=== PATIENT | female | born 1935 | race American Indian/Alaskan Native ===

== ENCOUNTER 2016-10-23 06:24 | Day surgery (SDC) | payer MEDICARE ==
[2016-10-23 06:59] VITALS: TEMP 97
[2016-10-23 07:06] VITALS: BMI 36.3
[2016-10-23] MEDS ORDERED: Lactated Ringer's 500 ML IV ONE ×2 (08:02)
[2016-10-23] MEDS ORDERED: Propofol 10 mg/ml Inj (20 ML) ONE (08:09)
[2016-10-23] MEDS ORDERED: Lidocaine Hydrochloride 5 ML INJ ONE (08:09)
--- NOTE | 2016-10-23 08:27 | CP.SDSHP ---
Same Day Surgery H & P - History Proposed Procedure: EGD w/ biopsy Pre-Op Diagnosis: GI Bleed - Previous Medical/Surgical History Cardiac: Hypertension, ASHD/CAD Pulmonary: Asthma, Emphysema/COPD Endocrine/Metabolic: Diabetes Misc: Other (Breast cancer) Previous Surgical History: Mastectomy, podiatric surgery - Allergies Allergies: Allergies Penicillins Allergy (Verified 01/11/16 15:09) - Current Medications Current Medications: reviewed, per reconciliation - Physical Exam General Appearance: wdwn nad Vital Signs: Vital Signs 10/23/16 06:50 Temperature 97 F L Pulse Rate 70 Respiratory 19 Rate Blood Pressure 138/60 O2 Sat by Pulse 98 Oximetry Mental Status: Alert & Oriented x3 Heart: WNL Lungs: WNL GI: WNL - {Optional Preform as Required} Abdomen: WNL - Impression Impression: GI Bleed Pt. Evaluated Today:Candidate for Anesthesia & Procedure: Yes - Date & Time Date: 10/23/16 Time: 08:26 Short Stay Discharge - Short Stay Discharge Admitting Diagnosis/Reason for Visit: ANEMIA Disposition: HOME/ ROUTINE
[2016-10-23 09:24] VITALS: O2SAT 96
[2016-10-23 09:26] VITALS: BP 114/66; PULSE 63; RESP 18
== END 2016-10-23 09:49 | disposition home or self-care (01) ==
LOC: C.ENDO 06:24
PROVIDERS: ATTEND Internal Medicine Gastroenterology
DX: D64.9 Anemia, unspecified (principal); K44.9 Diaphragmatic hernia without obstruction or gangrene
CPT/HCPCS: 43235; 82948; J2704; J7120

== ENCOUNTER 2017-02-04 12:18 | Inpatient (IN) | payer MEDICARE ==
[2017-02-04 12:19] VITALS: BMI 36.3
[2017-02-04 14:15] LABS: BASO # 0.1 K/uL (0.0-0.2); BASO % 0.9 % (0.0-2.0); EOS # 0.2 K/uL (0.0-0.7); EOS % 2.2 % (0.0-4.0); HEMATOCRIT 37.4 % (34.0-47.0); LYMPH # 1.7 K/uL (1.0-4.3); LYMPH % 24.2 % (20.0-40.0); MEAN CORPUSCULAR HEMOGLOBIN 30.8 pg (27.0-31.0); MEAN CORPUSCULAR HGB CONC 33.6 g/dL (33.0-37.0); MEAN PLATELET VOLUME 7.8 fL (7.2-11.7); MONO # 0.7 K/uL (0.0-0.8); MONO % 9.9 % (0.0-10.0); RED CELL DISTRIBUTION WIDTH 14.8 % (11.5-14.5); WHITE BLOOD COUNT 7.2 K/uL (4.8-10.8)
[2017-02-04 14:16] LABS: MEAN CELL VOLUME 91.7 fL (81.0-99.0)
--- NOTE | 2017-02-04 15:05 | RAD ---
PROCEDURE: Radiographs of the chest and abdomen (obstructive series) HISTORY: abd pain COMPARISON: No prior. TECHNIQUE: AP radiograph of the chest, with upright and supine radiographs of the abdomen. FINDINGS: CHEST: Lungs: A few incidental granulomas are suggested. No consolidation appreciated. Surgical changes consistent with prior left breast surgery over left axilla Cardiovascular: Mild cardiomegaly left ventricular enlargement configuration suggested. . No pulmonary vascular congestion. Pleura: No pleural fluid. No pneumothorax. Other findings: None. ABDOMEN AND PELVIS: Bowel: There is scattered hyperdensities over the pelvis and left abdomen inferred as residual contrast within rectosigmoid diverticulitis. Additional concomitant right hemipelvic surgical clips are also present. . Left splenic flexure stool retention. No evidence of mechanical obstruction. Free air: None. Bones: Bilateral inferior sclerotic SI joint changes noted. Similar-appearing the large lytic appearing lesion left iliac bone is noted and apparently previously biopsied on 11/15/2015 Other findings: None. IMPRESSION: Left splenic stool retention. . No evidence of mechanical bowel obstruction. No free air Rectosigmoid diverticulosis. With right hemipelvic surgical clips Left iliac bone lytic lesion - with prior biopsy of it noted.
[2017-02-04 15:08] LABS: RBC URINE 3 /hpf (0-3); URINE BILIRUBIN NEGATIVE (NEGATIVE); URINE BLOOD NEGATIVE (NEGATIVE); URINE COLOR Yellow (YELLOW); URINE GLUCOSE (UA) NORMAL (Normal); URINE KETONE NEGATIVE (NEGATIVE); URINE LEUKOCYTE ESTERASE TRACE Leu/uL (Negative); URINE PROTEIN 1+ mg/dL (NEGATIVE); URINE UROBILINOGEN NORMAL mg/dL (0.2-1.0); WBC URINE 7 /hpf (0-5)
[2017-02-04 15:38] LABS: ALB/GLOB RATIO 1.3 (1.0-2.1); ALKALINE PHOSPHATASE 84 U/L (38-126); ALT/SGPT 31 U/L (9-52); AST/SGOT 27 U/L (14-36); BILIRUBIN,TOTAL 0.9 mg/dL (0.2-1.3); BLOOD UREA NITROGEN 26 mg/dL (7-17); CALCIUM 8.8 mg/dl (8.6-10.4); CARBON DIOXIDE 27 mmol/L (22-30); CHLORIDE 101 mmol/L (98-107); GFR AFRICAN-AMERICAN > 60; GLUCOSE,RANDOM 96 mg/dL (65-105); POTASSIUM 4.4 mmol/L (3.6-5.2); SODIUM 135 mmol/L (132-148); TOTAL PROTEIN 7.1 g/dL (6.3-8.3)
[2017-02-04] MEDS ORDERED: Iohexol 240 (50 ml) PO ONE (15:47)
[2017-02-04] MEDS ORDERED: Iohexol 240 (50 ml) ONE (15:57)
--- NOTE | 2017-02-04 16:11 | CP.PCM.HP ---
History of Present Illness - History of Present Illness History of Present Illness: An 81-year-old female with PMHanemia, anxiety, asthma, atrial fibrillation, CHF , COPD, DM, gastritis, HTN, hypercholesterolemia, CKD [partial right nephrectomy ] and sleep apnea presents to the ER for C/ bleeding per rectum. C/Obleeding per rectum for 1 day. Bright red blood admixed with stool. C status O denies hard stools since today morning. C/Oabdominal pain for 1 day. Insidious in onset, mildly progressive, generalized all over the abdomen, cramping sensation, intensity of 5/10, no aggravating or relieving factors. No C/Obladder disturbance, vomiting, fever, chills, nausea. Present on Admission - Present on Admission Any Indicators Present on Admission: No Past Patient History - Past Medical History & Family History Past Medical History?: Yes - Past Social History Smoking Status: Never Smoked - CARDIAC Hx Cardiac Disorders: Yes (A-fib, Coronary stentx2) Hx Congestive Heart Failure: Yes Hx Hypercholesterolemia: Yes Hx Hypertension: Yes - PULMONARY Hx Respiratory Disorders: Yes Hx Asthma: Yes Hx Chronic Obstructive Pulmonary Disease (COPD): Yes Hx Sleep Apnea: Yes (NO C-PAP) - NEUROLOGICAL Hx Neurological Disorder: No - HEENT Hx HEENT Problems: No - RENAL Hx Chronic Kidney Disease: Yes (PARTIAL right NEPHRECTOMY) Other/Comment: MASS ON KIDNEY - ENDOCRINE/METABOLIC Hx Endocrine Disorders: Yes Hx Diabetes Mellitus Type 2: Yes - HEMATOLOGICAL/ONCOLOGICAL Hx Blood Disorders: Yes Hx Anemia: Yes Hx Cancer: Yes (left BREAST removed) Hx Chemotherapy: Yes - INTEGUMENTARY Hx Dermatological Problems: No - MUSCULOSKELETAL/RHEUMATOLOGICAL Hx Musculoskeletal Disorders: Yes Hx Falls: Yes Hx Fractures: Yes (TOES LEFT FOOT) Other/Comment: USES CANE - GASTROINTESTINAL Hx Gastrointestinal Disorders: Yes Hx Gastritis: Yes Hx Hemorrhoids: Yes Other/Comment: POLYPS/DIVERTICULOSIS/LOWER GI BLEED - GENITOURINARY/GYNECOLOGICAL Hx Genitourinary Disorders: Yes Hx Reproductive Disorders: Yes (HYSTERECTOMY/HEAVY BLEEDING) - PSYCHIATRIC Hx Psychophysiologic Disorder: Yes Hx Anxiety: Yes Hx Substance Use: No - SURGICAL HISTORY Hx Surgeries: Yes Hx Cardiac Catheterization: Yes Hx Coronary Stent: Yes (X2) Hx Hysterectomy: Yes Hx Mastectomy: Yes (left= 2 years ago) Hx Orthopedic Surgery: Yes (left foot) Other/Comment: BONE BX - ANESTHESIA Hx Anesthesia: Yes Hx Anesthesia Reactions: No Hx Malignant Hyperthermia: No Meds Allergies/Adverse Reactions: Allergies Allergy/AdvReac Type Severity Reaction Status Date / Time Penicillins Allergy Verified 02/04/17 12:25 Physical Exam - Constitutional Appears: Well - Head Exam Head Exam: ATRAUMATIC, NORMAL INSPECTION, NORMOCEPHALIC - Eye Exam Eye Exam: EOMI, Normal appearance, PERRL Pupil Exam: NORMAL ACCOMODATION, PERRL - ENT Exam ENT Exam: Mucous Membranes Moist, Normal Exam - Neck Exam Neck exam: Positive for: Normal Inspection - Respiratory Exam Respiratory Exam: Decreased Breath Sounds - Cardiovascular Exam Cardiovascular Exam: REGULAR RHYTHM, +S1, +S2 - GI/Abdominal Exam GI & Abdominal Exam: Diminished Bowel Sounds, Soft - Rectal Exam Rectal Exam: Deferred Results - Vital Signs Recent Vital Signs: Last Vital Signs Temp 97.8 F 02/04/17 12:26 Pulse 68 02/04/17 12:26 Resp 18 02/04/17 12:26 BP 130/77 02/04/17 12:27 Pulse Ox 95 02/04/17 12:26 - Labs Result Diagrams: 02/06/17 11:18 02/06/17 08:38 Labs: Laboratory Results - last 24 hr 02/04/17 02/04/17 02/04/17 13:59 14:10 14:10 WBC 7.2 RBC 4.08 Hgb 12.6 Hct 37.4 MCV 91.7 D MCH 30.8 MCHC 33.6 RDW 14.8 H Plt Count 276 MPV 7.8 Neut % (Auto) 62.8 Lymph % (Auto) 24.2 [place] % (Auto) 9.9 Eos % (Auto) 2.2 Baso % (Auto) 0.9 Neut # 4.5 Lymph # 1.7 [place] # 0.7 Eos # 0.2 Baso # 0.1 PT INR APTT Sodium 135 Potassium 4.4 Chloride 101 Carbon Dioxide 27 Anion Gap 12 BUN 26 H Creatinine 0.9 Est GFR ( Amer) > 60 Est GFR (Non-Af Amer) > 60 Random Glucose 96 Calcium 8.8 Total Bilirubin 0.9 AST 27 ALT 31 Alkaline Phosphatase 84 Total Protein 7.1 Albumin 4.0 Globulin 3.1 Albumin/Globulin Ratio 1.3 Lipase 85 Urine Color Urine Clarity Urine pH Ur Specific [place] Urine Protein Urine Glucose (UA) Urine Ketones Urine Blood Urine Nitrate Urine Bilirubin Urine Urobilinogen Ur Leukocyte Esterase Urine WBC (Auto) Urine RBC (Auto) Ur Squamous Epith Cells Stool Occult Blood Positive H 02/04/17 02/04/17 14:10 14:47 WBC RBC Hgb Hct MCV MCH MCHC RDW Plt Count MPV Neut % (Auto) Lymph % (Auto) [place] % (Auto) Eos % (Auto) Baso % (Auto) Neut # Lymph # [place] # Eos # Baso # PT 11.6 INR 1.0 APTT 33 Sodium Potassium Chloride Carbon Dioxide Anion Gap BUN Creatinine Est GFR ( Amer) Est GFR (Non-Af Amer) Random Glucose Calcium Total Bilirubin AST ALT Alkaline Phosphatase Total Protein Albumin Globulin Albumin/Globulin Ratio Lipase Urine Color Yellow Urine Clarity Hazy Urine pH 5.0 Ur Specific [place] 1.017 Urine Protein 1+ H Urine Glucose (UA) Normal Urine Ketones Negative Urine Blood Negative Urine Nitrate Negative Urine Bilirubin Negative Urine Urobilinogen Normal Ur Leukocyte Esterase Trace Urine WBC (Auto) 7 H Urine RBC (Auto) 3 Ur Squamous Epith Cells 12 H Stool Occult Blood
--- NOTE | 2017-02-04 16:13 | C.PDOC ---
History Of Present Illness 81 year old female presents to the ED with complaints of scant bright red blood per rectum with hard stool since this morning. Patient notes cramp-like abdominal pain since yesterday. Patient has no history of hemorrhoids. Patient denies nausea, vomiting, diarrhea, fever, or chills. Time Seen by Provider: 02/04/17 13:19 Chief Complaint (Nursing): GI Problem History Per: Patient History/Exam Limitations: no limitations Onset/Duration Of Symptoms: Days (1 day ), Worse Since (this morning ) Current Symptoms Are (Timing): Still Present Number Of Bleeding Episodes: Unknown Quality Of Discomfort: Cramping Associated Symptoms: denies: Nausea, Vomiting, Diarrhea, Hematemesis Modifying Factors: None Recent travel outside of the [place]: No Additional History Per: Prior Records Past Medical History Reviewed: Historical Data, Nursing Documentation, Vital Signs Vital Signs: Last Vital Signs Temp 97.6 F 02/05/17 00:00 Pulse 60 02/05/17 00:00 Resp 20 02/05/17 00:00 BP 125/73 02/05/17 00:00 Pulse Ox 95 02/05/17 00:00 - Medical History PMH: Anemia, Anxiety, Asthma, Atrial Fibrillation, CHF, COPD, Diabetes, Fractures (TOES LEFT FOOT), Gastritis, HTN, Hypercholesterolemia, Chronic Kidney Disease (PARTIAL right NEPHRECTOMY), Sleep Apnea (NO C-PAP) Surgical History: Coronary Stent (X2), Endoscopy - [facility] Procedures BONE BIOPSY NEC (06/14/13) C.A.T. SCAN OF KIDNEY (04/30/13) ENDOSC POLYPECTOMY OF LG INTEST (04/07/13) EXCISION OF ASCENDING COLON, ENDO, DIAGN (09/28/15) EXCISION OF TRANSVERSE COLON, ENDO, DIAGN (09/28/15) OTHER C.A.T. SCAN (06/14/13) PERCUTAN NEEDLE BIOPSY OF KIDNEY (04/30/13) Family History: States: Unknown Family Hx - Social History Hx Tobacco Use: No Hx Alcohol Use: No Hx Substance Use: No - Immunization History Hx Tetanus Toxoid Vaccination: No Hx Influenza Vaccination: No Hx Pneumococcal Vaccination: No Review Of Systems Constitutional: Negative for: Fever, Chills Cardiovascular: Negative for: Chest Pain, Palpitations Respiratory: Negative for: Cough, Shortness of Breath Gastrointestinal: Positive for: Abdominal Pain, Other (bright red blood per rectum ). Negative for: Nausea, Vomiting, Diarrhea Physical Exam - Physical Exam Appears: Non-toxic, No Acute Distress, Other (Patient is morbidly obese ) Skin: Warm, Dry, No Rash Head: Atraumatic, Normacephalic, No Tenderness Eye(s): bilateral: Normal Inspection, PERRL, EOMI Oral Mucosa: Moist Neck: Supple Chest: Symmetrical, No Deformity Cardiovascular: Rhythm Regular, No Murmur Respiratory: No Rales, No Rhonchi, No Wheezing, Other (clear to auscultation bilaterally ) Gastrointestinal/Abdominal: Soft, No Tenderness, No Distention, No Guarding, No Rebound Rectal: Hemorrhoids (internal hemorrhoids ), Other (bright red blood per retum ) ED Course And Treatment - Laboratory Results Result Diagrams: 02/04/17 14:10 02/04/17 14:10 ECG: Interpreted By Me, Viewed By Me ECG Rhythm: Sinus Rhythm Interpretation Of EC O2 Sat by Pulse Oximetry: 95 (RA) Pulse Ox Interpretation: Normal - Other Rad obstructive series X-Ray: Viewed By Me, Read By Radiologist Interpretation: FINDINGS: CHEST: Lungs: A few incidental granulomas are suggested. No consolidation appreciated. Surgical changes consistent with prior left breast surgery over left axilla. Cardiovascular: Mild cardiomegaly left ventricular enlargement configuration suggested. . No pulmonary vascular congestion. Pleura: No pleural fluid. No pneumothorax. Other findings: None. ABDOMEN AND PELVIS: Bowel: There is scattered hyperdensities over the pelvis and left abdomen inferred as residual contrast within rectosigmoid diverticulitis. Additional concomitant right hemipelvic surgical clips are also present. . Left splenic flexure stool retention. No evidence of mechanical obstruction. Free air: None. Bones: Bilateral inferior sclerotic SI joint changes noted. Similar-appearing the large lytic appearing lesion left iliac bone is noted and apparently previously biopsied on 11/15/2015. Other findings: None. IMPRESSION: Left splenic stool retention. . No evidence of mechanical bowel obstruction. No free air. Rectosigmoid diverticulosis. With right hemipelvic surgical clips. Left iliac bone lytic lesion - with prior biopsy of it noted. Progress Note: EKG, obstructive series, labs, and blood work were ordered. Medical Decision Making Medical Decision Making: Case discussed with Dr. Homero Leon at 3pm and agrees to admit to his service. Disposition Doctor Will See Patient In The: Hospital Counseled Patient/Family Regarding: Studies Performed, Diagnosis - Disposition Disposition: HOSPITALIZED Disposition Time: 15:00 Condition: GOOD - Clinical Impression Clinical Impression: Bright red blood per rectum, Constipation - Scribe Statement The provider has reviewed the documentation as recorded by the Chineduibgabe Dow All medical record entries made by the Madai were at my direction and personally dictated by me. I have reviewed the chart and agree that the record accurately reflects my personal performance of the history, physical exam, medical decision making, and the department course for this patient. I have also personally directed, reviewed, and agree with the discharge instructions and disposition.
[2017-02-04] MEDS ORDERED: Sodium Chloride 0.9% 1,000 ML IV ONE (16:26)
[2017-02-04 17:03] VITALS: RESP 20
[2017-02-04] MEDS: (Novolog) Insulin Aspart, Recombinant 100 u/ml 10 ml vial SC SCH (22:11)
[2017-02-05] MEDS ORDERED: Simethicone 80 mg Chewtab PO STA (00:13)
[2017-02-05] MEDS: Albuterol HFA 90 mcg/actuation (8 g) INH SCH ×2 (08:00→14:31)
[2017-02-05] MEDS: (Novolog) Insulin Aspart, Recombinant 100 u/ml 10 ml vial SC SCH ×4 (08:08→21:51)
[2017-02-05 08:53] LABS: ALB/GLOB RATIO 1.4 (1.0-2.1); ALKALINE PHOSPHATASE 80 U/L (38-126); ALT/SGPT 29 U/L (9-52); AST/SGOT 24 U/L (14-36); BILIRUBIN,TOTAL 0.8 mg/dL (0.2-1.3); BLOOD UREA NITROGEN 25 mg/dL (7-17); CALCIUM 8.8 mg/dl (8.6-10.4); CARBON DIOXIDE 31 mmol/L (22-30); CHLORIDE 97 mmol/L (98-107); GFR AFRICAN-AMERICAN > 60; GLUCOSE,RANDOM 155 mg/dL (65-105); POTASSIUM 4.5 mmol/L (3.6-5.2); SODIUM 137 mmol/L (132-148); TOTAL PROTEIN 6.6 g/dL (6.3-8.3)
--- NOTE | 2017-02-05 10:28 | CP.PCM.PN ---
<Sanjuanita Lenz - Last Filed: 02/05/17 10:20> Subjective - Date & Time of Evaluation Date of Evaluation: 02/05/17 Time of Evaluation: 07:55 - Subjective Subjective: PGY3 Medicine Note - Dr. Brian Leon's service: Patient seen and examined at bedside this AM. Patient reports RUQ pain. Patient reports 3 days of bloody diarrhea. Patient denies fever, chills, chest pain, SOB, nausea, vomiting. Objective - Vital Signs/Intake and Output Vital Signs (last 24 hours): Temp Pulse Resp BP Pulse Ox 97.6 F 58 L 20 135/72 95 02/05/17 08:07 02/05/17 08:07 02/05/17 08:07 02/05/17 08:07 02/05/17 08:07 Intake and Output: 02/05/17 02/05/17 06:59 18:59 Intake Total 540 Balance 540 - Medications Medications: Current Medications Albuterol (Ventolin Hfa 90 Mcg/Actuation (8 G)) puff INH PRN PRN PRN Reason: Shortness of Breath Carvedilol (Coreg) 3.125 mg PO BID [facility] Last Admin: 02/05/17 09:05 Dose: 3.125 mg Insulin Aspart (Novolog) 0 unit SC ACHS [facility] PRN Reason: Protocol Last Admin: 02/05/17 08:08 Dose: Not Given Losartan Potassium (Cozaar) 100 mg PO DAILY [facility] Last Admin: 02/05/17 09:05 Dose: 100 mg Metformin HCl (Glucophage) 500 mg PO DAILY [facility] Last Admin: 02/05/17 09:05 Dose: 500 mg Pantoprazole Sodium (Protonix Inj) 40 mg IVP DAILY [facility] Last Admin: 02/05/17 09:05 Dose: 40 mg Tiotropium [place] (Spiriva Inhalation Handihaler Device) inhaler INH Q6 PRN PRN Reason: Shortness of Breath - Labs Labs: 02/04/17 14:10 02/05/17 08:21 PT 11.6 SECONDS (9.7-12.2) 02/04/17 14:10 INR 1.0 02/04/17 14:10 APTT 33 SECONDS (21-34) 02/04/17 14:10 - Constitutional Appears: Non-toxic, No Acute Distress - Head Exam Head Exam: NORMAL INSPECTION - Eye Exam Eye Exam: EOMI - ENT Exam ENT Exam: Mucous Membranes Moist - Respiratory Exam Respiratory Exam: Clear to Ausculation Bilateral, NORMAL BREATHING PATTERN. absent: Rales, Rhonchi, Wheezes - Cardiovascular Exam Cardiovascular Exam: REGULAR RHYTHM, +S1, +S2. absent: Gallop, Rubs, Murmur - GI/Abdominal Exam GI & Abdominal Exam: Soft, Tenderness (RUQ qith positive brown's sign), Normal Bowel Sounds - Extremities Exam Extremities Exam: absent: Pedal Edema - Neurological Exam Neurological Exam: Alert, Awake, Oriented x3 - Psychiatric Exam Psychiatric exam: Normal Affect, Normal Mood - Skin Skin Exam: Normal Color, Warm Assessment and Plan - Assessment and Plan (Free Text) Assessment: GI bleed Hgb 12.6 last night F/U repeat CBC Protonix 40mg IVP daily GI consult - Dr. Easton - f/u recs Patient had colonoscopy September 2015 - diverticulosis in the sigmoid colon, descending colon and transverse colon, one 5mm polyp in ascending, two 5 mm polyps in transverse, blood in the sigmoid and descending colon, internal hemorrhoids (please see full report) All polyps found to be tubular adenomas ( please see full pathology report) Patient had upper endoscopy October 2016 - small hiatal hernia, normal duodenum and stomach (please see full report) RUQ tenderness F/U abdominal US LFTs WNL History of HTN Losartan 100mg PO daily Coreg 3.125mg PO BID controlled History of DM Metformin 500mg PO daily RISS Monitor accuchecks History of COPD Ventolin HFA INH PRN Spiriva INH Q6 PRN Prophylaxis Protonix 40mg IVP daily chemical VTE contraindicated secondary to GI bleed All medical management per Dr. Brian Leon <Christian Leon - Last Filed: 02/06/17 17:25> Objective - Vital Signs/Intake and Output Vital Signs (last 24 hours): Temp Pulse Resp BP Pulse Ox 98.3 F 62 20 120/66 95 02/06/17 15:00 02/06/17 16:00 02/06/17 15:00 02/06/17 16:00 02/06/17 16:00 Intake and Output: 02/06/17 02/06/17 06:59 18:59 Intake Total 840 300 Output Total 400 Balance 840 -100 - Medications Medications: Current Medications Albuterol (Ventolin Hfa 90 Mcg/Actuation (8 G)) 1 puff INH RQ6 [facility] Last Admin: 02/06/17 13:32 Dose: 1 puff Carvedilol (Coreg) 3.125 mg PO BID [facility] Last Admin: 02/06/17 17:23 Dose: 3.125 mg Insulin Aspart (Novolog) 0 unit SC ACHS [facility] PRN Reason: Protocol Last Admin: 02/06/17 17:02 Dose: Not Given Losartan Potassium (Cozaar) 100 mg PO DAILY [facility] Last Admin: 02/06/17 09:02 Dose: 100 mg Metformin HCl (Glucophage) 500 mg PO DAILY [facility] Last Admin: 02/06/17 09:02 Dose: 500 mg Pantoprazole Sodium (Protonix Inj) 40 mg IVP DAILY [facility] Last Admin: 02/06/17 09:02 Dose: 40 mg Tiotropium [place] (Spiriva) 18 mcg INH RQ24 [facility] Last Admin: 02/06/17 07:31 Dose: 18 mcg - Labs Labs: 02/06/17 11:18 02/06/17 08:38 PT 11.6 SECONDS (9.7-12.2) 02/04/17 14:10 INR 1.0 02/04/17 14:10 APTT 33 SECONDS (21-34) 02/04/17 14:10 Attending/Attestation - Attestation I have personally seen and examined this patient.: Yes I have fully participated in the care of the patient.: Yes I have reviewed all pertinent clinical information, including history, physical exam and plan: Yes Notes (Text): Patient examined. Right upper quadrant pain present. Bloody diarrhea present. Abdominal ultrasound suggestive of fatty infiltration of liver. Renal cyst. Continue antihypertensive and antidiabetic medications. Broncho-O.
[2017-02-05 12:19] LABS: BASO % 0.4 % (0.0-2.0); EOS # 0.1 K/uL (0.0-0.7); EOS % 1.8 % (0.0-4.0); LYMPH # 1.5 K/uL (1.0-4.3); LYMPH % 20.6 % (20.0-40.0); MEAN CELL VOLUME 91.7 fL (81.0-99.0); MEAN CORPUSCULAR HEMOGLOBIN 31.1 pg (27.0-31.0); MEAN PLATELET VOLUME 8.1 fL (7.2-11.7); MONO # 0.8 K/uL (0.0-0.8); RED CELL DISTRIBUTION WIDTH 14.9 % (11.5-14.5); WHITE BLOOD COUNT 7.5 K/uL (4.8-10.8)
--- NOTE | 2017-02-05 13:01 | CP.PCM.CON ---
History of Present Illness - History of Present Illness History of Present Illness: CC: Lower GI Bleed HPI: 81 year old woman, well known to me, presented to ER yesterday after experiencing 3-4 episodes of hematochezia, dark blood with diarrhea. Patient has bled in the past from colon diverticulosis, and last colonoscopy was September 2015 at which time bleeding was felt to be from sigmoid diverticulosis, and polyps were also resected at that time. Patient also underwent EGD October 2016, essentially unremarkable. Plavix had been restarted recently by patient's PCP after discussion with me. Patient has not dropped her Hgb in the hospital, and has had no further witnessed bleeding episodes. Discussed with Dr Hartman, patient's primary physician. Patient also has chronic anemia, felt due to chronic disease, history of AFib and Breast cancer- sees Dr Welch from Oncology. Review of Systems - Constitutional Constitutional: absent: Fatigue, Fever - EENT Eyes: absent: Change in Vision, Pain Ears: absent: Dizziness Nose/Mouth/Throat: absent: Epistaxis - Cardiovascular Cardiovascular: absent: Chest Pain at Rest, Dyspnea - Respiratory Respiratory: absent: Dyspnea on Exertion - Gastrointestinal Gastrointestinal: Hematochezia. absent: Abdominal Pain - Genitourinary Genitourinary: absent: Difficulty Urinating - Musculoskeletal Musculoskeletal: absent: Back Pain - Integumentary Integumentary: absent: Jaundice - Neurological Neurological: absent: Syncope - Psychiatric Psychiatric: absent: Confusion - Endocrine Endocrine: absent: Fatigue - Hematologic/Lymphatic Hematologic: absent: Easy Bleeding Past Patient History - Past Medical History & Family History Past Medical History?: Yes - Past Social History Smoking Status: Never Smoked - CARDIAC Hx Atrial Fibrillation: Yes Hx Congestive Heart Failure: Yes Hx Hypercholesterolemia: Yes Hx Hypertension: Yes - PULMONARY Hx Asthma: Yes Hx Chronic Obstructive Pulmonary Disease (COPD): Yes Hx Sleep Apnea: Yes (NO C-PAP) - NEUROLOGICAL Hx Neurological Disorder: No - HEENT Hx HEENT Problems: No - RENAL Hx Chronic Kidney Disease: Yes (PARTIAL right NEPHRECTOMY) - ENDOCRINE/METABOLIC Hx Endocrine Disorders: Yes Hx Diabetes Mellitus Type 2: Yes - HEMATOLOGICAL/ONCOLOGICAL Hx Anemia: Yes - INTEGUMENTARY Hx Dermatological Problems: No - MUSCULOSKELETAL/RHEUMATOLOGICAL Hx Fractures: Yes (TOES LEFT FOOT) - GASTROINTESTINAL Hx Gastritis: Yes - GENITOURINARY/GYNECOLOGICAL Hx Genitourinary Disorders: Yes Hx Reproductive Disorders: Yes (HYSTERECTOMY/HEAVY BLEEDING) - PSYCHIATRIC Hx Anxiety: Yes Hx Substance Use: No - SURGICAL HISTORY Hx Coronary Stent: Yes (X2) - ANESTHESIA Hx Anesthesia: Yes Hx Anesthesia Reactions: No Hx Malignant Hyperthermia: No Meds Allergies/Adverse Reactions: Allergies Allergy/AdvReac Type Severity Reaction Status Date / Time Penicillins Allergy Verified 02/04/17 12:25 - Medications Medications: Current Medications Albuterol (Ventolin Hfa 90 Mcg/Actuation (8 G)) 1 puff INH RQ6 [facility] Carvedilol (Coreg) 3.125 mg PO BID [facility] Last Admin: 02/05/17 09:05 Dose: 3.125 mg Insulin Aspart (Novolog) 0 unit SC ACHS [facility] PRN Reason: Protocol Last Admin: 02/05/17 12:00 Dose: Not Given Losartan Potassium (Cozaar) 100 mg PO DAILY [facility] Last Admin: 02/05/17 09:05 Dose: 100 mg Metformin HCl (Glucophage) 500 mg PO DAILY [facility] Last Admin: 02/05/17 09:05 Dose: 500 mg Pantoprazole Sodium (Protonix Inj) 40 mg IVP DAILY [facility] Last Admin: 02/05/17 09:05 Dose: 40 mg Tiotropium [place] (Spiriva) 18 mcg INH RQ24 [facility] Physical Exam - Constitutional Appears: No Acute Distress - Head Exam Head Exam: NORMOCEPHALIC - Eye Exam Eye Exam: Normal appearance - ENT Exam ENT Exam: Normal Exam - Neck Exam Neck exam: Positive for: Normal Inspection - Respiratory Exam Respiratory Exam: Clear to Auscultation Bilateral, NORMAL BREATHING PATTERN - Cardiovascular Exam Cardiovascular Exam: REGULAR RHYTHM - GI/Abdominal Exam GI & Abdominal Exam: Normal Bowel Sounds, Soft. absent: Distended, Mass, Rebound, Tenderness - Rectal Exam Rectal Exam: Deferred - Extremities Exam Extremities exam: Positive for: normal inspection - Back Exam Back exam: NORMAL INSPECTION - Neurological Exam Neurological exam: Alert, Oriented x3 - Psychiatric Exam Psychiatric exam: Normal Affect, Normal Mood - Skin Skin Exam: Intact Results - Vital Signs Recent Vital Signs: Last Vital Signs Temp 97.6 F 02/05/17 08:07 Pulse 58 L 02/05/17 08:07 Resp 20 02/05/17 08:07 BP 135/72 02/05/17 08:07 Pulse Ox 95 02/05/17 08:07 - Labs Result Diagrams: 02/05/17 12:00 02/05/17 08:21 Labs: Laboratory Results - last 24 hr 02/04/17 02/04/17 02/04/17 13:59 14:10 14:10 WBC 7.2 RBC 4.08 Hgb 12.6 Hct 37.4 MCV 91.7 D MCH 30.8 MCHC 33.6 RDW 14.8 H Plt Count 276 MPV 7.8 Neut % (Auto) 62.8 Lymph % (Auto) 24.2 [place] % (Auto) 9.9 Eos % (Auto) 2.2 Baso % (Auto) 0.9 Neut # 4.5 Lymph # 1.7 [place] # 0.7 Eos # 0.2 Baso # 0.1 PT INR APTT Sodium 135 Potassium 4.4 Chloride 101 Carbon Dioxide 27 Anion Gap 12 BUN 26 H Creatinine 0.9 Est GFR ( Amer) > 60 Est GFR (Non-Af Amer) > 60 POC Glucose (mg/dL) Random Glucose 96 Calcium 8.8 Total Bilirubin 0.9 AST 27 ALT 31 Alkaline Phosphatase 84 Total Protein 7.1 Albumin 4.0 Globulin 3.1 Albumin/Globulin Ratio 1.3 Lipase 85 Urine Color Urine Clarity Urine pH Ur Specific Howe Urine Protein Urine Glucose (UA) Urine Ketones Urine Blood Urine Nitrate Urine Bilirubin Urine Urobilinogen Ur Leukocyte Esterase Urine WBC (Auto) Urine RBC (Auto) Ur Squamous Epith Cells Stool Occult Blood Positive H 02/04/17 02/04/17 02/04/17 14:10 14:47 17:17 WBC RBC Hgb Hct MCV MCH MCHC RDW Plt Count MPV Neut % (Auto) Lymph % (Auto) [place] % (Auto) Eos % (Auto) Baso % (Auto) Neut # Lymph # [place] # Eos # Baso # PT 11.6 INR 1.0 APTT 33 Sodium Potassium Chloride Carbon Dioxide Anion Gap BUN Creatinine Est GFR ( Amer) Est GFR (Non-Af Amer) POC Glucose (mg/dL) 119 H Random Glucose Calcium Total Bilirubin AST ALT Alkaline Phosphatase Total Protein Albumin Globulin Albumin/Globulin Ratio Lipase Urine Color Yellow Urine Clarity Hazy Urine pH 5.0 Ur Specific Howe 1.017 Urine Protein 1+ H Urine Glucose (UA) Normal Urine Ketones Negative Urine Blood Negative Urine Nitrate Negative Urine Bilirubin Negative Urine Urobilinogen Normal Ur Leukocyte Esterase Trace Urine WBC (Auto) 7 H Urine RBC (Auto) 3 Ur Squamous Epith Cells 12 H Stool Occult Blood 02/04/17 02/05/17 02/05/17 21:10 07:20 08:21 WBC RBC Hgb Hct MCV MCH MCHC RDW Plt Count MPV Neut % (Auto) Lymph % (Auto) [place] % (Auto) Eos % (Auto) Baso % (Auto) Neut # Lymph # [place] # Eos # Baso # PT INR APTT Sodium 137 Potassium 4.5 Chloride 97 L Carbon Dioxide 31 H Anion Gap 13 BUN 25 H Creatinine 0.9 Est GFR ( Amer) > 60 Est GFR (Non-Af Amer) > 60 POC Glucose (mg/dL) 105 121 H Random Glucose 155 H Calcium 8.8 Total Bilirubin 0.8 AST 24 ALT 29 Alkaline Phosphatase 80 Total Protein 6.6 Albumin 3.9 Globulin 2.7 Albumin/Globulin Ratio 1.4 Lipase Urine Color Urine Clarity Urine pH Ur Specific Howe Urine Protein Urine Glucose (UA) Urine Ketones Urine Blood Urine Nitrate Urine Bilirubin Urine Urobilinogen Ur Leukocyte Esterase Urine WBC (Auto) Urine RBC (Auto) Ur Squamous Epith Cells Stool Occult Blood 02/05/17 12:00 WBC 7.5 RBC 3.82 Hgb 11.9 Hct 35.0 MCV 91.7 MCH 31.1 H MCHC 34.0 RDW 14.9 H Plt Count 271 MPV 8.1 Neut % (Auto) 66.2 Lymph % (Auto) 20.6 [place] % (Auto) 11.0 H Eos % (Auto) 1.8 Baso % (Auto) 0.4 Neut # 4.9 Lymph # 1.5 [place] # 0.8 Eos # 0.1 Baso # 0.0 PT INR APTT Sodium Potassium Chloride Carbon Dioxide Anion Gap BUN Creatinine Est GFR ( Amer) Est GFR (Non-Af Amer) POC Glucose (mg/dL) Random Glucose Calcium Total Bilirubin AST ALT Alkaline Phosphatase Total Protein Albumin Globulin Albumin/Globulin Ratio Lipase Urine Color Urine Clarity Urine pH Ur Specific Howe Urine Protein Urine Glucose (UA) Urine Ketones Urine Blood Urine Nitrate Urine Bilirubin Urine Urobilinogen Ur Leukocyte Esterase Urine WBC (Auto) Urine RBC (Auto) Ur Squamous Epith Cells Stool Occult Blood Assessment & Plan (1) Bright red blood per rectum Assessment and Plan: Likely from Diverticulosis, exacerbated by Plavix. Has had Colonoscopy recently. No major drop in Hgb, and bleeding has clinically resolved. Rec: Discussed with Dr Hartman- will hold Plavix and he will decide on risk vs benefit of continuing/resumoing Plavix in the future. If patient stable overnight, may go home tomorrow (off Plavix) and follow up with Dr Hartman in office. Status: Acute (2) Atrial fibrillation Status: Acute
[2017-02-05] MEDS: Tiotropium 18 mcg Cap For Inhalation INH SCH (14:32)
--- NOTE | 2017-02-05 16:37 | US ---
HISTORY: RUQ tenderness COMPARISON: CT abdomen pelvis without contrast performed 09/05/13 TECHNIQUE: Sonographic evaluation of the abdomen. FINDINGS: Examination markedly limited due to habitus. LIVER: Measures 17.5 cm in sagittal dimension. Echogenic liver may be seen in setting of hepatic parenchymal disease or fatty infiltration. No focal hepatic mass identified. The main portal vein appears patent with normal directional flow. No intrahepatic bile duct dilatation. GALLBLADDER: No gallstones. No gallbladder wall thickening. Negative sonographic Hernandez's sign as assessed by the wastewater analyst. COMMON BILE DUCT: Measures 4 mm. PANCREAS: Not well visualized. RIGHT KIDNEY: Measures 13.2 x 6.9 x 3.9cm. No obstructing calculus or hydronephrosis identified. Upper to midpole renal cyst measures approximately 11.6 x 7.8 x 12.3 cm. Hypoechoic lower pole lesion measures approximately 3.7 x 3.2 x 3.1 cm, indeterminate possibly complex cyst. Mid to lower pole hypoechoic lesion measures approximately 2.6 x 2.3 x 3.2 cm. LEFT KIDNEY: Measures 10.6 x 5.0 x 4.5cm. No obstructing calculus or hydronephrosis identified. Midpole hypoechoic lesion measures approximately 2.1 x 2.0 x 1.9 cm. 3 mm midpole renal calculus. SPLEEN: Measures approximately 9.7 cm. AORTA: Limited views appear unremarkable. IVC: Limited views appear unremarkable. OTHER FINDINGS: Question possibility of right adrenal gland mass measuring approximately 3.8 x 2.1 x 3.1 cm. IMPRESSION: Limited study. Echogenic liver may be seen in setting of hepatic parenchymal disease or fatty infiltration. Numerous right renal lesions including evidence of a large cyst, as well as 2 indeterminate lesions as above. Suggest dedicated renal CT for further evaluation. Question possibility of 3.8 cm right adrenal gland mass. Attention on cross-sectional imaging recommended. Indeterminate midpole renal hypoechoic lesion measuring approximately 2.8 cm. Nonobstructing 3 mm left mid pole calculus.
--- NOTE | 2017-02-05 20:05 | CP.PCM.PN ---
Subjective - Date & Time of Evaluation Date of Evaluation: 02/05/17 Time of Evaluation: 07:40 - Subjective Subjective: clinically same Objective - Vital Signs/Intake and Output Vital Signs (last 24 hours): Temp Pulse Resp BP Pulse Ox 98.4 F 57 L 20 132/72 94 L 02/05/17 15:00 02/05/17 15:00 02/05/17 15:00 02/05/17 15:00 02/05/17 15:00 Intake and Output: 02/05/17 02/06/17 18:59 06:59 Intake Total 150 Balance 150 - Medications Medications: Current Medications Albuterol (Ventolin Hfa 90 Mcg/Actuation (8 G)) 1 puff INH RQ6 [facility] Last Admin: 02/05/17 14:31 Dose: Not Given Carvedilol (Coreg) 3.125 mg PO BID [facility] Last Admin: 02/05/17 17:26 Dose: 3.125 mg Insulin Aspart (Novolog) 0 unit SC ACHS [facility] PRN Reason: Protocol Last Admin: 02/05/17 16:46 Dose: Not Given Losartan Potassium (Cozaar) 100 mg PO DAILY [facility] Last Admin: 02/05/17 09:05 Dose: 100 mg Metformin HCl (Glucophage) 500 mg PO DAILY [facility] Last Admin: 02/05/17 09:05 Dose: 500 mg Pantoprazole Sodium (Protonix Inj) 40 mg IVP DAILY [facility] Last Admin: 02/05/17 09:05 Dose: 40 mg Tiotropium [place] (Spiriva) 18 mcg INH RQ24 [facility] Last Admin: 02/05/17 14:32 Dose: Not Given - Labs Labs: 02/05/17 12:00 02/05/17 08:21 PT 11.6 SECONDS (9.7-12.2) 02/04/17 14:10 INR 1.0 02/04/17 14:10 APTT 33 SECONDS (21-34) 02/04/17 14:10 - Constitutional Appears: Well - Head Exam Head Exam: ATRAUMATIC, NORMAL INSPECTION, NORMOCEPHALIC - Eye Exam Eye Exam: EOMI, Normal appearance, PERRL Pupil Exam: NORMAL ACCOMODATION, PERRL - ENT Exam ENT Exam: Mucous Membranes Moist, Normal Exam - Neck Exam Neck Exam: Full ROM, Normal Inspection. absent: Lymphadenopathy - Respiratory Exam Respiratory Exam: Decreased Breath Sounds - Cardiovascular Exam Cardiovascular Exam: REGULAR RHYTHM, +S1, +S2 - GI/Abdominal Exam GI & Abdominal Exam: Soft, Diminished Bowel Sounds - Rectal Exam Rectal Exam: Deferred Assessment and Plan (1) Bright red blood per rectum Status: Acute (2) Constipation Status: Acute (3) Anemia Status: Acute (4) Atrial fibrillation Status: Acute (5) CHF (congestive heart failure) Status: Acute (6) Chest pain Status: Acute (7) Colon polyp Status: Acute (8) Coronary artery disease Status: Acute (9) GI bleed Status: Acute (10) Palpitations Status: Acute (11) Prophylactic measure Status: Acute (12) Renal carcinoma Status: Acute (13) Renal mass Status: Acute (14) COPD (chronic obstructive pulmonary disease) Status: Chronic (15) Diabetes mellitus Status: Chronic (16) Diverticulosis Status: Chronic (17) Hyperlipemia Status: Chronic (18) Hypertension Status: Chronic - Assessment and Plan (Free Text) Plan: Patient examined. Bleeding most likely from diverticulosis exacerbated by clopidogrel. Patient had recently gotten colonoscopy. Hold Plavix. Continue antihypertensive and antidiabetic medications. Continue supportive care.
[2017-02-05 21:15] LABS: BASO % 0.5 % (0.0-2.0); EOS # 0.2 K/uL (0.0-0.7); EOS % 1.8 % (0.0-4.0); HEMATOCRIT 35.9 % (34.0-47.0); LYMPH # 2.3 K/uL (1.0-4.3); LYMPH % 24.9 % (20.0-40.0); MEAN CELL VOLUME 91.1 fL (81.0-99.0); MEAN CORPUSCULAR HEMOGLOBIN 30.7 pg (27.0-31.0); MEAN CORPUSCULAR HGB CONC 33.7 g/dL (33.0-37.0); MONO # 0.9 K/uL (0.0-0.8); MONO % 9.9 % (0.0-10.0); NRBC % 0.1 % (0.0-2.0); RED CELL DISTRIBUTION WIDTH 15.1 % (11.5-14.5); WHITE BLOOD COUNT 9.3 K/uL (4.8-10.8)
[2017-02-06] MEDS: Albuterol HFA 90 mcg/actuation (8 g) INH SCH ×4 (01:51→19:31)
[2017-02-06] MEDS: Tiotropium 18 mcg Cap For Inhalation INH SCH (07:31)
[2017-02-06] MEDS: (Novolog) Insulin Aspart, Recombinant 100 u/ml 10 ml vial SC SCH ×4 (07:33→22:38)
--- NOTE | 2017-02-06 08:33 | CARD ---
APPROVED REPORT EKG Measurement Heart [id number] <Conclusion> Sinus rhythm with sinus arrhythmia with occasional premature ventricular complexes Left axis deviation Minimal voltage criteria for LVH, may be normal variant Abnormal ECG
--- NOTE | 2017-02-06 08:53 | CP.PCM.PN ---
Subjective - Date & Time of Evaluation Date of Evaluation: 02/06/17 Time of Evaluation: 07:40 - Subjective Subjective: clinically same Objective - Vital Signs/Intake and Output Vital Signs (last 24 hours): Temp Pulse Resp BP Pulse Ox 98.4 F 64 20 120/74 95 02/06/17 07:51 02/06/17 07:51 02/06/17 07:51 02/06/17 07:51 02/06/17 07:51 Intake and Output: 02/06/17 02/06/17 06:59 18:59 Intake Total 840 Balance 840 - Medications Medications: Current Medications Albuterol (Ventolin Hfa 90 Mcg/Actuation (8 G)) 1 puff INH RQ6 [facility] Last Admin: 02/06/17 07:31 Dose: 1 puff Carvedilol (Coreg) 3.125 mg PO BID [facility] Last Admin: 02/05/17 17:26 Dose: 3.125 mg Insulin Aspart (Novolog) 0 unit SC ACHS [facility] PRN Reason: Protocol Last Admin: 02/06/17 07:33 Dose: Not Given Losartan Potassium (Cozaar) 100 mg PO DAILY [facility] Last Admin: 02/05/17 09:05 Dose: 100 mg Metformin HCl (Glucophage) 500 mg PO DAILY [facility] Last Admin: 02/05/17 09:05 Dose: 500 mg Pantoprazole Sodium (Protonix Inj) 40 mg IVP DAILY [facility] Last Admin: 02/05/17 09:05 Dose: 40 mg Tiotropium [place] (Spiriva) 18 mcg INH RQ24 [facility] Last Admin: 02/06/17 07:31 Dose: 18 mcg - Labs Labs: 02/05/17 12:00 02/05/17 08:21 PT 11.6 SECONDS (9.7-12.2) 02/04/17 14:10 INR 1.0 02/04/17 14:10 APTT 33 SECONDS (21-34) 02/04/17 14:10 - Constitutional Appears: Well - Head Exam Head Exam: ATRAUMATIC, NORMAL INSPECTION, NORMOCEPHALIC - Eye Exam Eye Exam: EOMI, Normal appearance, PERRL - ENT Exam ENT Exam: Mucous Membranes Moist, Normal Exam - Neck Exam Neck Exam: Full ROM, Normal Inspection. absent: Lymphadenopathy - Respiratory Exam Respiratory Exam: Decreased Breath Sounds - Cardiovascular Exam Cardiovascular Exam: REGULAR RHYTHM, +S1, +S2 - GI/Abdominal Exam GI & Abdominal Exam: Soft, Diminished Bowel Sounds - Rectal Exam Rectal Exam: Deferred Assessment and Plan (1) Bright red blood per rectum Status: Acute (2) Constipation Status: Acute (3) Anemia Status: Acute (4) Atrial fibrillation Status: Acute (5) CHF (congestive heart failure) Status: Acute (6) Chest pain Status: Acute (7) Colon polyp Status: Acute (8) Coronary artery disease Status: Acute (9) GI bleed Status: Acute (10) Palpitations Status: Acute (11) Prophylactic measure Status: Acute (12) Renal carcinoma Status: Acute (13) Renal mass Status: Acute (14) COPD (chronic obstructive pulmonary disease) Status: Chronic (15) Diabetes mellitus Status: Chronic (16) Diverticulosis Status: Chronic (17) Hyperlipemia Status: Chronic (18) Hypertension Status: Chronic - Assessment and Plan (Free Text) Plan: Patient examined. Patient clinically the same. Continue antihypertensive and antidiabetic medications. Continue supportive care.
[2017-02-06 09:19] LABS: ALB/GLOB RATIO 1.3 (1.0-2.1); ALKALINE PHOSPHATASE 81 U/L (38-126); ALT/SGPT 26 U/L (9-52); AST/SGOT 16 U/L (14-36); BILIRUBIN,TOTAL 0.9 mg/dL (0.2-1.3); BLOOD UREA NITROGEN 30 mg/dL (7-17); CALCIUM 8.6 mg/dl (8.6-10.4); CARBON DIOXIDE 25 mmol/L (22-30); CHLORIDE 98 mmol/L (98-107); GFR AFRICAN-AMERICAN > 60; GLUCOSE,RANDOM 140 mg/dL (65-105); POTASSIUM 4.5 mmol/L (3.6-5.2); SODIUM 134 mmol/L (132-148)
[2017-02-06 11:39] LABS: BASO % 0.5 % (0.0-2.0); EOS # 0.1 K/uL (0.0-0.7); HEMATOCRIT 34.6 % (34.0-47.0); LYMPH # 1.5 K/uL (1.0-4.3); LYMPH % 25.6 % (20.0-40.0); MEAN CELL VOLUME 91.6 fL (81.0-99.0); MEAN CORPUSCULAR HEMOGLOBIN 30.6 pg (27.0-31.0); MEAN CORPUSCULAR HGB CONC 33.5 g/dL (33.0-37.0); MEAN PLATELET VOLUME 8.3 fL (7.2-11.7); MONO # 0.6 K/uL (0.0-0.8); MONO % 10.6 % (0.0-10.0); RED CELL DISTRIBUTION WIDTH 14.8 % (11.5-14.5); WHITE BLOOD COUNT 6.1 K/uL (4.8-10.8)
--- NOTE | 2017-02-06 15:07 | CP.PCM.PN ---
<Wenceslao Conklin - Last Filed: 02/06/17 15:08> Subjective - Date & Time of Evaluation Date of Evaluation: 02/06/17 Time of Evaluation: 15:00 - Subjective Subjective: Progress note. Dr. Leon. Pt seen and examined at bedside. No acute distress. No events overnight. Pt still reporting some blood per rectum. No fevers, chills, vomiting, cp, sob. Objective - Vital Signs/Intake and Output Vital Signs (last 24 hours): Temp Pulse Resp BP Pulse Ox 98.4 F 64 20 120/74 95 02/06/17 07:51 02/06/17 07:51 02/06/17 07:51 02/06/17 07:51 02/06/17 07:51 Intake and Output: 02/06/17 02/06/17 06:59 18:59 Intake Total 840 Balance 840 - Medications Medications: Current Medications Albuterol (Ventolin Hfa 90 Mcg/Actuation (8 G)) 1 puff INH RQ6 [facility] Last Admin: 02/06/17 13:32 Dose: 1 puff Carvedilol (Coreg) 3.125 mg PO BID [facility] Last Admin: 02/06/17 09:02 Dose: 3.125 mg Insulin Aspart (Novolog) 0 unit SC ACHS [facility] PRN Reason: Protocol Last Admin: 02/06/17 11:42 Dose: 1 unit Losartan Potassium (Cozaar) 100 mg PO DAILY [facility] Last Admin: 02/06/17 09:02 Dose: 100 mg Metformin HCl (Glucophage) 500 mg PO DAILY [facility] Last Admin: 02/06/17 09:02 Dose: 500 mg Pantoprazole Sodium (Protonix Inj) 40 mg IVP DAILY [facility] Last Admin: 02/06/17 09:02 Dose: 40 mg Tiotropium [place] (Spiriva) 18 mcg INH RQ24 [facility] Last Admin: 02/06/17 07:31 Dose: 18 mcg - Labs Labs: 02/06/17 11:18 02/06/17 08:38 PT 11.6 SECONDS (9.7-12.2) 02/04/17 14:10 INR 1.0 02/04/17 14:10 APTT 33 SECONDS (21-34) 02/04/17 14:10 - Constitutional Appears: Non-toxic, No Acute Distress - Head Exam Head Exam: ATRAUMATIC, NORMAL INSPECTION, NORMOCEPHALIC - Eye Exam Eye Exam: EOMI - ENT Exam ENT Exam: Mucous Membranes Moist - Neck Exam Neck Exam: Full ROM, Normal Inspection - Respiratory Exam Respiratory Exam: NORMAL BREATHING PATTERN. absent: Respiratory Distress - Cardiovascular Exam Cardiovascular Exam: +S1, +S2 - GI/Abdominal Exam GI & Abdominal Exam: Soft, Normal Bowel Sounds. absent: Tenderness - Extremities Exam Extremities Exam: Full ROM, Normal Inspection - Back Exam Back Exam: NORMAL INSPECTION - Neurological Exam Neurological Exam: Alert, Awake, Oriented x3 - Psychiatric Exam Psychiatric exam: Normal Affect, Normal Mood - Skin Skin Exam: Dry, Intact, Normal Color, Warm Assessment and Plan - Assessment and Plan (Free Text) Assessment: This is an 81 yo female with GI bleed likely secondary to plavix use plavix has been discontinued HGB stable today F/U repeat CBC Protonix 40mg IVP daily GI consult - Dr. Easton - f/u recs Patient had colonoscopy September 2015 - diverticulosis in the sigmoid colon, descending colon and transverse colon, one 5mm polyp in ascending, two 5 mm polyps in transverse, blood in the sigmoid and descending colon, internal hemorrhoids (please see full report) All polyps found to be tubular adenomas ( please see full pathology report) Patient had upper endoscopy October 2016 - small hiatal hernia, normal duodenum and stomach (please see full report) RUQ tenderness -abdominal ultrasound shows echogenic liver, right renal cyst, adrenal mass ( please see full report) -continue to monitor -LFTs WNL History of HTN -continue Losartan 100mg PO daily -continue Coreg 3.125mg PO BID - controlled at this time History of DM -Metformin 500mg PO daily -RISS -Monitor accuchecks History of COPD -Ventolin HFA INH PRN -Spiriva INH Q6 PRN GI/DVT ppx Protonix 40mg IVP daily chemical VTE contraindicated secondary to GI bleed SCDs All medical management per Dr. Brian Leon <Christian Leon - Last Filed: 02/06/17 17:27> Objective - Vital Signs/Intake and Output Vital Signs (last 24 hours): Temp Pulse Resp BP Pulse Ox 98.3 F 62 20 120/66 95 02/06/17 15:00 02/06/17 16:00 02/06/17 15:00 02/06/17 16:00 02/06/17 16:00 Intake and Output: 02/06/17 02/06/17 06:59 18:59 Intake Total 840 300 Output Total 400 Balance 840 -100 - Medications Medications: Current Medications Albuterol (Ventolin Hfa 90 Mcg/Actuation (8 G)) 1 puff INH RQ6 [facility] Last Admin: 02/06/17 13:32 Dose: 1 puff Carvedilol (Coreg) 3.125 mg PO BID [facility] Last Admin: 02/06/17 17:23 Dose: 3.125 mg Insulin Aspart (Novolog) 0 unit SC ACHS [facility] PRN Reason: Protocol Last Admin: 02/06/17 17:02 Dose: Not Given Losartan Potassium (Cozaar) 100 mg PO DAILY [facility] Last Admin: 02/06/17 09:02 Dose: 100 mg Metformin HCl (Glucophage) 500 mg PO DAILY [facility] Last Admin: 02/06/17 09:02 Dose: 500 mg Pantoprazole Sodium (Protonix Inj) 40 mg IVP DAILY [facility] Last Admin: 02/06/17 09:02 Dose: 40 mg Tiotropium [place] (Spiriva) 18 mcg INH RQ24 [facility] Last Admin: 02/06/17 07:31 Dose: 18 mcg - Labs Labs: 02/06/17 11:18 02/06/17 08:38 PT 11.6 SECONDS (9.7-12.2) 02/04/17 14:10 INR 1.0 02/04/17 14:10 APTT 33 SECONDS (21-34) 02/04/17 14:10 Assessment and Plan (1) Bright red blood per rectum Status: Acute (2) Constipation Status: Acute (3) Anemia Status: Acute (4) Atrial fibrillation Status: Acute (5) CHF (congestive heart failure) Status: Acute (6) Chest pain Status: Acute (7) Colon polyp Status: Acute (8) Coronary artery disease Status: Acute (9) GI bleed Status: Acute (10) Palpitations Status: Acute (11) Prophylactic measure Status: Acute (12) Renal carcinoma Status: Acute (13) Renal mass Status: Acute (14) COPD (chronic obstructive pulmonary disease) Status: Chronic (15) Diabetes mellitus Status: Chronic (16) Diverticulosis Status: Chronic (17) Hyperlipemia Status: Chronic (18) Hypertension Status: Chronic Attending/Attestation - Attestation I have personally seen and examined this patient.: Yes I have fully participated in the care of the patient.: Yes I have reviewed all pertinent clinical information, including history, physical exam and plan: Yes Notes (Text): Patient examined. No acute overnight events. Some bleeding present productive. Plavix is on hold. Continue antihypertensive and antidiabetic medications.
[2017-02-07] MEDS: Albuterol HFA 90 mcg/actuation (8 g) INH SCH ×3 (02:50→13:21)
[2017-02-07] MEDS: Tiotropium 18 mcg Cap For Inhalation INH SCH (08:07)
[2017-02-07] MEDS: (Novolog) Insulin Aspart, Recombinant 100 u/ml 10 ml vial SC SCH ×2 (08:17→11:42)
[2017-02-07 08:39] VITALS: BP 131/68; PULSE 65; TEMP 97.6; O2SAT 95
[2017-02-07 11:32] LABS: BASO % 0.3 % (0.0-2.0); EOS # 0.1 K/uL (0.0-0.7); EOS % 1.8 % (0.0-4.0); HEMATOCRIT 35.3 % (34.0-47.0); LYMPH # 1.6 K/uL (1.0-4.3); LYMPH % 22.3 % (20.0-40.0); MEAN CELL VOLUME 92.4 fL (81.0-99.0); MEAN CORPUSCULAR HEMOGLOBIN 30.9 pg (27.0-31.0); MEAN CORPUSCULAR HGB CONC 33.4 g/dL (33.0-37.0); MEAN PLATELET VOLUME 8.2 fL (7.2-11.7); MONO # 0.7 K/uL (0.0-0.8); MONO % 9.8 % (0.0-10.0); NRBC % 0.1 % (0.0-2.0); RED CELL DISTRIBUTION WIDTH 14.8 % (11.5-14.5); WHITE BLOOD COUNT 7.1 K/uL (4.8-10.8)
[2017-02-07] MEDS ORDERED: Pantoprazole 40 mg EC Tab PO ONE (11:33)
--- NOTE | 2017-02-07 11:44 | CP.PCM.PN ---
Subjective - Date & Time of Evaluation Date of Evaluation: 02/07/17 Time of Evaluation: 11:40 - Subjective Subjective: Progress note. Attending: Dr. Leon. Pt seen and examined at bedside. No acute distress. No events overnight. Pt still reporting some minimal blood per rectum. No fevers, chills, vomiting, diarrhea. Objective - Vital Signs/Intake and Output Vital Signs (last 24 hours): Temp Pulse Resp BP Pulse Ox 97.6 F 65 20 131/68 95 02/07/17 08:38 02/07/17 08:38 02/07/17 08:38 02/07/17 08:38 02/07/17 08:38 Intake and Output: 02/07/17 02/07/17 06:59 18:59 Intake Total 660 Output Total 400 Balance 260 - Medications Medications: Current Medications Albuterol (Ventolin Hfa 90 Mcg/Actuation (8 G)) 1 puff INH RQ6 [facility] Last Admin: 02/07/17 08:08 Dose: 1 puff Carvedilol (Coreg) 3.125 mg PO BID [facility] Last Admin: 02/07/17 10:34 Dose: 3.125 mg Insulin Aspart (Novolog) 0 unit SC ACHS [facility] PRN Reason: Protocol Last Admin: 02/07/17 08:17 Dose: Not Given Losartan Potassium (Cozaar) 100 mg PO DAILY [facility] Last Admin: 02/07/17 10:34 Dose: 100 mg Metformin HCl (Glucophage) 500 mg PO DAILY [facility] Last Admin: 02/07/17 10:34 Dose: 500 mg Pantoprazole Sodium (Protonix Inj) 40 mg IVP DAILY [facility] Last Admin: 02/07/17 10:39 Dose: Not Given Tiotropium [place] (Spiriva) 18 mcg INH RQ24 [facility] Last Admin: 02/07/17 08:07 Dose: 18 mcg - Labs Labs: 02/07/17 11:18 02/06/17 08:38 PT 11.6 SECONDS (9.7-12.2) 02/04/17 14:10 INR 1.0 02/04/17 14:10 APTT 33 SECONDS (21-34) 02/04/17 14:10 - Constitutional Appears: Non-toxic, No Acute Distress - Head Exam Head Exam: ATRAUMATIC, NORMAL INSPECTION, NORMOCEPHALIC - Eye Exam Eye Exam: EOMI - ENT Exam ENT Exam: Mucous Membranes Moist - Neck Exam Neck Exam: Full ROM, Normal Inspection - Respiratory Exam Respiratory Exam: NORMAL BREATHING PATTERN. absent: Respiratory Distress - Cardiovascular Exam Cardiovascular Exam: +S1, +S2 - GI/Abdominal Exam GI & Abdominal Exam: Soft, Normal Bowel Sounds. absent: Tenderness - Extremities Exam Extremities Exam: Full ROM, Normal Inspection - Back Exam Back Exam: NORMAL INSPECTION - Neurological Exam Neurological Exam: Alert, Awake, Oriented x3 - Psychiatric Exam Psychiatric exam: Normal Affect, Normal Mood - Skin Skin Exam: Dry, Intact, Normal Color, Warm Assessment and Plan - Assessment and Plan (Free Text) Assessment: This is an 81 yo female with GI bleed likely secondary to plavix use plavix has been discontinued HGB stable today F/U repeat CBC Protonix 40mg IVP daily GI consult - Dr. Easton - f/u recs Patient had colonoscopy September 2015 - diverticulosis in the sigmoid colon, descending colon and transverse colon, one 5mm polyp in ascending, two 5 mm polyps in transverse, blood in the sigmoid and descending colon, internal hemorrhoids (please see full report) All polyps found to be tubular adenomas ( please see full pathology report) Patient had upper endoscopy October 2016 - small hiatal hernia, normal duodenum and stomach (please see full report) RUQ tenderness -resolved -abdominal ultrasound shows echogenic liver, right renal cyst, adrenal mass ( please see full report) -continue to monitor -LFTs WNL History of HTN -continue Losartan 100mg PO daily -continue Coreg 3.125mg PO BID - controlled at this time History of DM -Metformin 500 mg PO daily -insulin aspart sliding scale, low dose -Monitor accuchecks History of COPD -Ventolin HFA INH PRN -continue tiotropium INH Q6 PRN GI/DVT ppx Protonix 40mg IVP daily chemical VTE contraindicated secondary to GI bleed SCDs All medical management per Dr. Brian Leon
[2017-02-07] MEDS ORDERED: Pantoprazole 40 mg EC Tab PO SCH (11:45)
[2017-02-07 12:02] LABS: ALB/GLOB RATIO 1.3 (1.0-2.1); ALKALINE PHOSPHATASE 75 U/L (38-126); ALT/SGPT 29 U/L (9-52); AST/SGOT 18 U/L (14-36); BILIRUBIN,TOTAL 0.7 mg/dL (0.2-1.3); BLOOD UREA NITROGEN 33 mg/dL (7-17); CALCIUM 8.7 mg/dl (8.6-10.4); CARBON DIOXIDE 30 mmol/L (22-30); CHLORIDE 97 mmol/L (98-107); GFR AFRICAN-AMERICAN > 60; GLUCOSE,RANDOM 109 mg/dL (65-105); POTASSIUM 4.4 mmol/L (3.6-5.2); SODIUM 136 mmol/L (132-148)
--- NOTE | 2017-02-07 15:38 | CP.PCM.PN ---
Subjective - Date & Time of Evaluation Date of Evaluation: 02/07/17 Time of Evaluation: 15:37 - Subjective Subjective: CC: Follow up GI bleed No bleeding. Hgb stable. Off Plavix. Objective - Vital Signs/Intake and Output Vital Signs (last 24 hours): Temp Pulse Resp BP Pulse Ox 97.6 F 65 20 131/68 95 02/07/17 08:38 02/07/17 08:38 02/07/17 08:38 02/07/17 08:38 02/07/17 08:38 Intake and Output: 02/07/17 02/07/17 06:59 18:59 Intake Total 660 600 Output Total 400 Balance 260 600 - Medications Medications: Current Medications Albuterol (Ventolin Hfa 90 Mcg/Actuation (8 G)) 1 puff INH RQ6 [facility] Last Admin: 02/07/17 13:21 Dose: Not Given Carvedilol (Coreg) 3.125 mg PO BID [facility] Last Admin: 02/07/17 10:34 Dose: 3.125 mg Insulin Aspart (Novolog) 0 unit SC ACHS [facility] PRN Reason: Protocol Last Admin: 02/07/17 11:42 Dose: Not Given Losartan Potassium (Cozaar) 100 mg PO DAILY [facility] Last Admin: 02/07/17 10:34 Dose: 100 mg Metformin HCl (Glucophage) 500 mg PO DAILY [facility] Last Admin: 02/07/17 10:34 Dose: 500 mg Pantoprazole Sodium (Protonix Inj) 40 mg IVP DAILY [facility] Last Admin: 02/07/17 10:39 Dose: Not Given Tiotropium [place] (Spiriva) 18 mcg INH RQ24 [facility] Last Admin: 02/07/17 08:07 Dose: 18 mcg - Labs Labs: 02/07/17 11:18 02/07/17 11:18 PT 11.6 SECONDS (9.7-12.2) 02/04/17 14:10 INR 1.0 02/04/17 14:10 APTT 33 SECONDS (21-34) 02/04/17 14:10 - Constitutional Appears: Well - Head Exam Head Exam: ATRAUMATIC, NORMOCEPHALIC - Respiratory Exam Respiratory Exam: NORMAL BREATHING PATTERN - Cardiovascular Exam Cardiovascular Exam: REGULAR RHYTHM - GI/Abdominal Exam GI & Abdominal Exam: Soft. absent: Tenderness Assessment and Plan (1) Bright red blood per rectum Assessment & Plan: Stable off Plavix. Had Colonoscopy recently-does not need repeat at this time. Rec: Keep off Plavix, and follow up with Dr Hartman as out patient. Status: Acute (2) Atrial fibrillation Status: Acute
== END 2017-02-07 16:30 | disposition home or self-care (01) | DRG 378 ==
LOC: C.ER 12:18 → C.9E 14:55 → C.3T 16:21 → OBSVTOIN 02-06 14:38
PROVIDERS: ADMIT Internal Medicine Nephrology; ATTEND Internal Medicine Nephrology
DX: K57.31 Diverticulosis of large intestine without perforation or abscess with bleeding (principal); I13.0 Hypertensive heart and chronic kidney disease with heart failure and stage 1 through stage 4 chronic kidney disease, or unspecified chronic kidney disease; I50.9 Heart failure, unspecified; E11.22 Type 2 diabetes mellitus with diabetic chronic kidney disease; I48.91 Unspecified atrial fibrillation; D64.9 Anemia, unspecified; T45.525A Adverse effect of antithrombotic drugs, initial encounter; E27.9 Disorder of adrenal gland, unspecified; E78.00 Pure hypercholesterolemia, unspecified; I25.10 Atherosclerotic heart disease of native coronary artery without angina pectoris; J44.9 Chronic obstructive pulmonary disease, unspecified; K59.00 Constipation, unspecified; N18.9 Chronic kidney disease, unspecified; N28.1 Cyst of kidney, acquired; Z79.84 Long term (current) use of oral hypoglycemic drugs; Z85.3 Personal history of malignant neoplasm of breast; Z95.5 Presence of coronary angioplasty implant and graft; Z86.010 Personal history of colon polyps

== ENCOUNTER 2017-08-12 09:09 | Emergency (ER) | payer MEDICARE ==
[2017-08-12 09:21] VITALS: BMI 35.4
[2017-08-12] MEDS ORDERED: Albuterol 0.083% Inhal Sol (2.5 mg/3 mL) UD INH STA (09:58)
--- NOTE | 2017-08-12 09:58 | C.PDOC ---
History Of Present Illness +CHRISTIANSON, B/L LEG SWELLING X 5 DAYS. HO COPD, USES HOME O2 "ONLY WHEN NEEDED". + ORTHOPNEA. CURRENTLY ASYMPT. NO ASSOC CP, FEVER, COUGH. COMPLIANT W COPD MEDS. PS USED TO BE ON DIURETICS BUT STOPPED BY PMD X 1 YEAR EXAM NARD APPEARS COMFORTABLE LUNGS CTA B/L NO W/R/R CV RRR EXT +1+ PITTING EDEMA WARM DRY REMAINDER NEG PMD JC Time Seen by Provider: 08/12/17 09:30 Chief Complaint (Nursing): Shortness Of Breath History Per: Patient History/Exam Limitations: no limitations Current Symptoms Are (Timing): Still Present Associated Symptoms: denies: Fever, Chills, Chest Pain Past Medical History Reviewed: Historical Data, Nursing Documentation, Vital Signs Vital Signs: Last Vital Signs Temp 98.7 F 08/12/17 09:21 Pulse 67 08/12/17 11:32 Resp 18 08/12/17 11:32 BP 166/72 H 08/12/17 11:32 Pulse Ox 96 08/12/17 12:02 - Medical History PMH: Anemia, Anxiety, Asthma, Atrial Fibrillation, CHF, COPD, Diabetes, Fractures (TOES LEFT FOOT), Gastritis, HTN, Hypercholesterolemia, Chronic Kidney Disease (PARTIAL right NEPHRECTOMY), Sleep Apnea (NO C-PAP) Surgical History: Coronary Stent (X2), Endoscopy - [facility] Procedures BONE BIOPSY NEC (06/14/13) C.A.T. SCAN OF KIDNEY (04/30/13) ENDOSC POLYPECTOMY OF LG INTEST (04/07/13) EXCISION OF ASCENDING COLON, ENDO, DIAGN (09/28/15) EXCISION OF TRANSVERSE COLON, ENDO, DIAGN (09/28/15) OTHER C.A.T. SCAN (06/14/13) PERCUTAN NEEDLE BIOPSY OF KIDNEY (04/30/13) Family History: States: No Known Family Hx, Unknown Family Hx - Social History Hx Tobacco Use: No Hx Alcohol Use: No Hx Substance Use: No - Immunization History Hx Tetanus Toxoid Vaccination: No Hx Influenza Vaccination: No Hx Pneumococcal Vaccination: No Review Of Systems Except As Marked, All Systems Reviewed And Found Negative. Constitutional: Negative for: Fever, Chills Cardiovascular: Negative for: Chest Pain Respiratory: Positive for: SOB with Excertion. Negative for: Cough Musculoskeletal: Positive for: Other (bilateral leg swelling) Physical Exam - Physical Exam Appears: Non-toxic, No Acute Distress Skin: Normal Color, Warm, Dry Head: Atraumatic, Normacephalic Eye(s): bilateral: Normal Inspection Neck: Normal ROM, Supple Chest: Symmetrical Cardiovascular: Rhythm Regular Respiratory: Normal Breath Sounds, No Rales, No Rhonchi, No Wheezing Extremity: Normal ROM, Pedal Edema (1+ pitting edema) Neurological/Psych: Oriented x3 ED Course And Treatment - Laboratory Results Result Diagrams: 08/12/17 10:05 08/12/17 10:05 ECG: Interpreted By Me ECG Rhythm: Sinus Rhythm ECG Interpretation: Normal Rate From EC O2 Sat by Pulse Oximetry: 96 (RA) Pulse Ox Interpretation: Normal - Radiology CXR: Interpreted by Me CXR Interpretation: Yes: No Acute Disease Progress - Re-Evaluation Re-evaluation Note: 08/12/17 12:01 PS FEELS BETTER AMBUL WO DIFF. VSS - Data Reviewed Data Reviewed: Lab, Diagnostic imaging, EKG, Old records Disposition Counseled Patient/Family Regarding: Studies Performed, Diagnosis, Need For Followup, Rx Given - Disposition Referrals: YOUR,PMD [Other] Disposition: HOME/ ROUTINE Disposition Time: 12:14 Condition: IMPROVED Prescriptions: Albuterol HFA [Ventolin HFA 90 mcg/actuation (8 g)] 1 puff IH Q4 #1 inhaler predniSONE [Prednisone] 60 mg PO DAILY #12 tab Instructions: Exacerbation of COPD (DC) Forms: [facility] ([place]) - Clinical Impression Clinical Impression: COPD exacerbation - Scribe Statement The provider has reviewed the documentation as recorded by the Scribe (Shannon Jeter) Provider Attestation: All medical record entries made by the Scribe were at my direction and personally dictated by me. I have reviewed the chart and agree that the record accurately reflects my personal performance of the history, physical exam, medical decision making, and the department course for this patient. I have also personally directed, reviewed, and agree with the discharge instructions and disposition.
[2017-08-12] MEDS ORDERED: Albuterol 0.083% Inhal Sol (2.5 mg/3 mL) UD ONE (10:06)
[2017-08-12] MEDS ORDERED: MethylPREDNISolone 40 mg Vial ONE (10:06)
[2017-08-12 10:11] LABS: BASO # 0.1 K/uL (0.0-0.2); BASO % 0.9 % (0.0-2.0); EOS # 0.1 K/uL (0.0-0.7); EOS % 1.5 % (0.0-4.0); HEMOGLOBIN 12.9 g/dL (11.0-16.0); LYMPH # 1.5 K/uL (1.0-4.3); LYMPH % 21.7 % (20.0-40.0); MEAN CELL VOLUME 92.1 fL (81.0-99.0); MEAN CORPUSCULAR HEMOGLOBIN 31.6 pg (27.0-31.0); MEAN CORPUSCULAR HGB CONC 34.3 g/dL (33.0-37.0); MEAN PLATELET VOLUME 8.3 fL (7.2-11.7); MONO # 0.6 K/uL (0.0-0.8); MONO % 8.8 % (0.0-10.0); NEUT # 4.8 K/uL (1.8-7.0); NEUT % 67.1 % (50.0-75.0); NRBC % 0.1 % (0.0-2.0); RBC 4.08 Mil/uL (3.80-5.20); RED CELL DISTRIBUTION WIDTH 14.5 % (11.5-14.5); WHITE BLOOD COUNT 7.1 K/uL (4.8-10.8)
[2017-08-12 10:26] LABS: ALB/GLOB RATIO 1.1 (1.0-2.1); ALBUMIN 4.6 g/dL (3.5-5.0); ALT/SGPT 11 U/L (9-52); AST/SGOT 22 U/L (14-36); BLOOD UREA NITROGEN 16 mg/dL (7-17); CALCIUM 8.6 mg/dl (8.6-10.4); GFR AFRICAN-AMERICAN > 60; GFR NON-AFRICAN AMERICAN > 60
[2017-08-12 10:36] LABS: B-TYPE NATRIURETIC PEPTIDE 240 pg/mL (0-900)
--- NOTE | 2017-08-12 11:09 | RAD ---
PROCEDURE: CHEST RADIOGRAPH, 1 VIEW HISTORY: SOB COMPARISON: 04/24/2016 FINDINGS: LUNGS: Clear. PLEURA: No pneumothorax or pleural fluid seen. CARDIOVASCULAR: Normal. OSSEOUS STRUCTURES: No significant abnormalities. VISUALIZED UPPER ABDOMEN: Normal. OTHER FINDINGS: None. IMPRESSION: No active disease.
[2017-08-12 13:29] VITALS: BP 160/75; PULSE 78; RESP 22; TEMP 98.1; O2SAT 95
--- NOTE | 2017-08-13 13:37 | CARD ---
APPROVED REPORT EKG Measurement Heart [id number] <Conclusion> Normal sinus rhythm with sinus arrhythmia Left axis deviation Abnormal ECG
== END 2017-08-12 13:22 | disposition home or self-care (01) ==
LOC: C.ER 09:09
DX: J44.1 Chronic obstructive pulmonary disease with (acute) exacerbation (principal); I48.91 Unspecified atrial fibrillation; I12.9 Hypertensive chronic kidney disease with stage 1 through stage 4 chronic kidney disease, or unspecified chronic kidney disease; N18.9 Chronic kidney disease, unspecified; E78.00 Pure hypercholesterolemia, unspecified
CPT/HCPCS: 71045; 80053; 83880; 84484; 85025; 93005; 96374; 99285; J2930